=== PATIENT | female | born 1955 | race Caucasian/White ===

== ENCOUNTER 2017-03-23 14:13 | Outpatient (CLI) | payer OTHER ==
[~2017-03-23] VITALS: Ht 154.9 cm; Wt 68.2 kg
[~2017-03-23 14:13] MED LIST: AMLO-147 PO; CLON-230 PO; FLUO20SO PO; FOLI-49 PO; GABA300C16 PO; HUM100VI8 SQ; LISI20TA11 PO; OMEP20CA16 PO; OXYB5TAB7 PO; PARO-37; TRAM50TA2 PO; [UNRECOGNIZED DRUG - OTHER]
[2017-03-23 15:33] VITALS: BP 102/50; PULSE 59; RESP 18; Ht 154.9 cm; Wt 68.2 kg
[2017-03-23] MEDS ORDERED: CITA-104 PO (15:48)
[2017-03-23] MEDS ORDERED: MIRT15TA5 PO (15:48)
[2017-03-23] MEDS ORDERED: NYST1000 PO (15:48)
[2017-03-23] MEDS ORDERED: MAGN400C PO (15:48)
[2017-03-23] MEDS ORDERED: LANT3I SC (15:48)
[2017-03-23] MEDS ORDERED: NICO1PAT38 TD (15:48)
[2017-03-23] MEDS ORDERED: ASPI-664 PO (15:48)
[2017-03-23] MEDS ORDERED: GABA300C PO (15:48)
--- NOTE | 2017-03-23 16:02 | PN ---
Date/Time of Note Date/Time of Note DATE: 03/23/17 TIME: 15:57 Outpatient Progress Note Chief Complaint Fatigue/diabetes/hypertension/arthritis/depression HPI Fatigue/patient has generalized weakness and tiredness, poor appetite, patient feels exhausted all the time, no fall, Diabetes/no polydipsia polyuria hypoglycemia, no gastroparesis, Hypertension/no headache or dizziness, no lightheadedness, no local focal weakness, feel generalized weakness, DJD/patient is joint pain, stiffness, Depression/patient has anxiety and depression, slight insomnia, Review of Systems Const: No Fever, no chills, no Wt. loss, moderate fatigue, normal appetite, no diaphoresis. Eyes: No pain, no discharge, no redness, no visual change, no foreign body. ENT: No pain, no bleeding, no congestion, no sore throat, no dysphagia, no discharge or rhinitis. Lymph: No adenopathy, no tender nodes, no lymphedema. Resp: No SOB, no cough, no sputum, no wheezing, no chest pain. CV: No chest pain, no palpitaions, no ALCANTARA, no PND, no edema. GI: Normal appetite, no pain, no nausea, no vomiting, no diarrhea, no blood, no constipation. : No frequency, no urgency, no dysuria, no hematuria, no flank pain, no discharge, no bleeding. Musc: Slight back pain, no neck pain, bilateral knee pain, no restricted ROM. Skin: No rash, no skin lesions, no erythema, no laceration, no bruising, no pruritus. Neuro: No WILLIAM, no dizziness, no syncope, no seizure, no focal-weakness. Endo: No polyuria, no polydypsia, no dry-skin, no temp-intolerance. Psych: No hallucinations, no depression, no anxiety, no suicidal ideation. Ext: No edema, no pain, no ulcer, no weakness. Physical Exam Vital Signs Date Time Temp Pulse Resp B/P Pulse Ox O2 Delivery O2 Flow Rate FiO2 03/23/17 15:33 97.5 59 18 102/50 99 Room Air General Appearance: A [61 year-old female [who appears well-developed, well- nourished, in no acute distress. HEENT: Head normocephalic, atraumatic. Pupils equal, round, reactive to light and accommodate. Sclerae are no jaundice. Nasal turbinates pink without erythema or nasal discharge. Mucous membranes pink and moist without lesions. Oropharynx clear without any exudate or discharge. NECK: Supple. Trachea midline, No thyromegaly, No cervical lymphadenopathy, No mass, No carotid bruits, No JVD, Carotid pulses 2+ bilaterally. PULMONARY: Clear to auscultaion bilaterally, No retractions, Chest expansion symmetric bilaterally, no rales, no ronchi, no dulness on percussion. CARDIAC: Normal SI and S2, Regular rate and rythm, no murmur, gallop, or rub. GASTROINTESTINAL: Abdomen is soft, non-tender, Non Rigid, No distention, Positive bowel sounds x4 quadrants, Liver normal. SKIN: Warm, dry, no rash, no bruise, no echmosis. EXTREMITIES: Bilateral lower extremities, no edema, no phlabitus, pulse palpable , no contracture. MUSCULOSKELETAL: Spine Normal, Non-tender, Normal range of motion, No swelling, no deformity, no clubbing, or cyanosis, the patient has no edema to bilateral lower extremities, dorsalis pedis pulses palpable bilaterally. NEUROLOGIC: The patient is awake, alert, oriented, responding to yes/no questions appropriately, moving all extremities, cranial nerve intact, normal strenght, normal power, normal coordination, normal gait. Allergies Coded Allergies: No Known Allergy (Verified , 01/14/13) PMH Spinal injury/back pain/diabetes/hypertension/DJD/depression/anxiety/sciatica Tonsillectomy cholecystectomy section and cataract surgery Social Hx Smokes half a pack of cigarettes per day, no drinking, Family Hx Noncontributory Assessment/Plan Impression Severe fatigue/diabetes/hypertension/arthritis/depression Plan Patient education done about the disease, Patient is getting physical therapy at home, patient advised to increase activity slowly, Patient advised to follow with the primary care physician, CBC CMP TSH, Patient has all the medication, Medications Home Meds Reported Medications Mirtazapine* (Mirtazapine*) 15 Mg Tablet, 15 MG PO HS, TAB 03/23/17 Insulin Glargine* (Lantus*) 100 Unit/Ml Soln, 1 UNIT SC QHS, #1 VIAL 03/23/17 Gabapentin* (Neurontin*) 300 Mg Capsule, 300 MG PO TID, #90 CAP 03/23/17 Nystatin (Nystatin) 100,000 Unit/1 Ml Oral.susp, 2 ML PO QID, #60 ML 03/23/17 Citalopram Hydrobromide* (Citalopram Hydrobromide*) 40 Mg Tablet, 40 MG PO DAILY , #30 TAB 03/23/17 Nicotine (Nicoderm Cq) 1 Each Patch.td24, 1 EACH TD DAILY 03/23/17 Magnesium Oxide (Mag Oxide) 400 Mg Capsule, 400 MG PO BID, CAP 03/23/17 Aspirin (Low Dose Aspirin) 81 Mg Tablet.dr, 81 MG PO DAILY, #30 TAB 03/23/17 Omeprazole* (Omeprazole*) 20 Mg Capsule.dr, 20 MG PO DAILY 10/29/12 Oxybutynin Chloride* (Ditropan*) 5 Mg Tablet, 5 MG PO DAILY 10/29/12 Lisinopril* (Lisinopril*) 20 Mg Tablet, 20 MG PO BID 10/29/12 Amlodipine Besylate* (Amlodipine Besylate*) 10 Mg Tablet, 10 MG PO DAILY 10/29/12 Discontinued Reported Medications [Same Medications] No Conflict Check 01/14/13 Paroxetine Hcl* (Paroxetine*) 20 Mg Tablet, DAILY 01/14/13 Hum Insulin Nph/Reg Insulin Hm (Humulin 70-30 Vial) 100 Units/Ml Vial, 25 SQ AC MEALS BID 10/29/12 Folic Acid* (Folic Acid*) 1 Mg Tablet, 1 MG PO DAILY 10/29/12 Clonidine Hcl (Clonidine Hcl) 0.1 Mg Tablet, 0.1 MG PO HS 10/29/12 Tramadol HCl (Tramadol HCl) 50 Mg Tablet, 50 MG PO Y 10/29/12 Fluoxetine Hcl* (Fluoxetine Hcl* Liq) 20 Mg/5 Ml Solution, 20 MG PO DAILY 10/29/12 Gabapentin* (Gabapentin*) 300 Mg Capsule, 300 MG PO BID 10/29/12 DEBORAH DAVIS MD Mar 23, 2017 16:02
== END 2017-03-23 16:12 | disposition home or self-care (01) ==
LOC: DCC 14:13
PROVIDERS: ATTEND Internal Medicine
DX: R53.83 Other fatigue (principal); E11.9 Type 2 diabetes mellitus without complications; I10 Essential (primary) hypertension; M19.90 Unspecified osteoarthritis, unspecified site; F32.9 Major depressive disorder, single episode, unspecified

== ENCOUNTER 2017-04-06 11:15 | Outpatient (CLI) | payer OTHER ==
[~2017-04-06] VITALS: Ht 154.9 cm; Wt 67.3 kg
[~2017-04-06 11:15] MED LIST changes: +ASPI-664 PO; +CITA-104 PO; -CLON-230 PO; -FLUO20SO PO; -FOLI-49 PO; +GABA300C PO; -GABA300C16 PO; -HUM100VI8 SQ; +LANT3I SC; +MAGN400C PO; +MIRT15TA5 PO; +NICO1PAT38 TD; +NYST1000 PO; -PARO-37; -TRAM50TA2 PO; -[UNRECOGNIZED DRUG - OTHER]
[2017-04-06 11:33] VITALS: Ht 154.9 cm; Wt 67.3 kg
[2017-04-06 11:34] VITALS: BP 128/60; PULSE 69; RESP 18
--- NOTE | 2017-04-06 12:16 | PN ---
Date/Time of Note Date/Time of Note DATE: 04/06/17 TIME: 12:10 Outpatient Progress Note Chief Complaint Hyperkalemia/diabetes/hypertension/depression/DJD HPI Hyperkalemia/patient has elevated potassium, potassium was 6.6, no muscle cramps , generalized weakness and tiredness, Diabetes/no polydipsia polyuria hypoglycemia, patient has a peripheral neuropathy, Hypertension/no headache or dizziness or lightheadedness, Depression patient slightly depressed, slightly better than before, DJD/joint pain and stiffness, difficulty in walking, Review of Systems Const: No Fever, no chills, no Wt. loss, no Fatigue, normal appetite, no diaphoresis. Eyes: No pain, no discharge, no redness, no visual change, no foreign body. ENT: No pain, no bleeding, no congestion, no sore throat, no dysphagia, no discharge or rhinitis. Lymph: No adenopathy, no tender nodes, no lymphedema. Resp: No SOB, no cough, no sputum, no wheezing, no chest pain. CV: No chest pain, no palpitaions, no ALCANTARA, no PND, no edema. GI: Normal appetite, no pain, no nausea, no vomiting, no diarrhea, no blood, no constipation. : No frequency, no urgency, no dysuria, no hematuria, no flank pain, no discharge, no bleeding. Musc: No bone/joint pain, no back pain, no neck pain, no knee pain, no restricted ROM. Skin: No rash, no skin lesions, no erythema, no laceration, no bruising, no pruritus. Neuro: No WILLIAM, no dizziness, no syncope, no seizure, no focal-weakness. Patient has neuropathy, secondary diabetes, Endo: No polyuria, no polydypsia, no dry-skin, no temp-intolerance. Psych: No hallucinations, no depression, no anxiety, no suicidal ideation. Ext: No edema, no pain, no ulcer, no weakness. Neuropathy in legs, Physical Exam Vital Signs Date Time Temp Pulse Resp B/P Pulse Ox O2 Delivery O2 Flow Rate FiO2 04/06/17 11:34 98.0 69 18 128/60 95 Room Air General Appearance: A 61 year-old female who appears well-developed, well- nourished, in no acute distress. HEENT: Head normocephalic, atraumatic. Pupils equal, round, reactive to light and accommodate. Sclerae are no jaundice. Nasal turbinates pink without erythema or nasal discharge. Mucous membranes pink and moist without lesions. Oropharynx clear without any exudate or discharge. NECK: Supple. Trachea midline, No thyromegaly, No cervical lymphadenopathy, No mass, No carotid bruits, No JVD, Carotid pulses 2+ bilaterally. PULMONARY: Clear to auscultaion bilaterally, No retractions, Chest expansion symmetric bilaterally, no rales, no ronchi, no dulness on percussion. CARDIAC: Normal SI and S2, Regular rate and rythm, no murmur, gallop, or rub. GASTROINTESTINAL: Abdomen is soft, non-tender, Non Rigid, No distention, Positive bowel sounds x4 quadrants, Liver normal. SKIN: Warm, dry, no rash, no bruise, no echmosis. EXTREMITIES: Bilateral lower extremities normal, no edema, no phlabitus, pulse palpable, no contracture diabetic neuropathy both legs,. MUSCULOSKELETAL: Spine Normal, Non-tender, Normal range of motion, No swelling, no deformity, no clubbing, or cyanosis, the patient has no edema to bilateral lower extremities, dorsalis pedis pulses palpable bilaterally. NEUROLOGIC: The patient is awake, alert, oriented, responding to yes/no questions appropriately, moving all extremities, cranial nerve intact, normal strenght, normal power, normal coordination, normal gait. Allergies Coded Allergies: No Known Allergy (Verified , 01/14/13) PMH No change Social Hx No change Family Hx No change Assessment/Plan Impression Hyperkalemia/diabetes/hypertension/depression/DJD/multiple fall Plan Patient had elevated potassium, patient has not taken medication, as it was not preapproved, We will go up to insurance [employer] and will get authorization today, Control of blood pressure control of blood sugar, Patient has multiple falls, fall precaution, patient has diabetic neuropathy, discussed with the patient fall precaution, patient likely to fall and fractured bone, discussed with the family, how to avoid, Kayexalate 30 g twice a day for 2 days, BMP Sunday, Patient encouraged to follow with the primary care physician, Patient TSH was slightly elevated, will start Synthroid 25 g p.o. daily, #100 tablet Medications Home Meds Reported Medications Mirtazapine* (Mirtazapine*) 15 Mg Tablet, 15 MG PO HS, TAB 03/23/17 Insulin Glargine* (Lantus*) 100 Unit/Ml Soln, 1 UNIT SC QHS, #1 VIAL 03/23/17 Gabapentin* (Neurontin*) 300 Mg Capsule, 300 MG PO TID, #90 CAP 03/23/17 Citalopram Hydrobromide* (Citalopram Hydrobromide*) 40 Mg Tablet, 40 MG PO DAILY , #30 TAB 03/23/17 Nicotine (Nicoderm Cq) 1 Each Patch.td24, 1 EACH TD DAILY 03/23/17 Magnesium Oxide (Mag Oxide) 400 Mg Capsule, 400 MG PO BID, CAP 03/23/17 Aspirin (Low Dose Aspirin) 81 Mg Tablet.dr, 81 MG PO DAILY, #30 TAB 03/23/17 Omeprazole* (Omeprazole*) 20 Mg Capsule.dr, 20 MG PO DAILY 10/29/12 Oxybutynin Chloride* (Ditropan*) 5 Mg Tablet, 5 MG PO DAILY 10/29/12 Lisinopril* (Lisinopril*) 20 Mg Tablet, 20 MG PO BID 10/29/12 Amlodipine Besylate* (Amlodipine Besylate*) 10 Mg Tablet, 10 MG PO DAILY 10/29/12 Discontinued Reported Medications Nystatin (Nystatin) 100,000 Unit/1 Ml Oral.susp, 2 ML PO QID, #60 ML 03/23/17 DEBORAH DAVIS MD April 06, 2017 12:16
== END 2017-04-09 15:28 | disposition home or self-care (01) ==
LOC: DCC 11:15
PROVIDERS: ATTEND Internal Medicine
DX: E87.5 Hyperkalemia (principal); E11.9 Type 2 diabetes mellitus without complications; Z79.4 Long term (current) use of insulin; I10 Essential (primary) hypertension; F32.9 Major depressive disorder, single episode, unspecified; M19.90 Unspecified osteoarthritis, unspecified site

== ENCOUNTER 2017-10-05 11:53 | Emergency (ER) | END 2017-10-05 12:41 | disposition home or self-care (01) | DX: S80.212A Abrasion, left knee, initial encounter (principal); S50.312A Abrasion of left elbow, initial encounter; I10 Essential (primary) hypertension; E11.9 Type 2 diabetes mellitus without complications; F17.210 Nicotine dependence, cigarettes, uncomplicated; W01.0XXA Fall on same level from slipping, tripping and stumbling without subsequent striking against object, initial encounter; Y92.9 Unspecified place or not applicable; Z79.4 Long term (current) use of insulin; Z79.82 Long term (current) use of aspirin ==

== ENCOUNTER 2018-02-16 00:38 | Inpatient (IN) | END 2018-02-17 19:30 | disposition home health service (06) | DRG 629 ==

== ENCOUNTER 2018-05-24 15:58 | Emergency (ER) | END 2018-05-24 18:38 | disposition home or self-care (01) ==

== ENCOUNTER 2018-06-05 09:36 | Emergency (ER) | END 2018-06-05 11:40 | disposition home or self-care (01) ==